=== PATIENT | male | born 1955 | race Caucasian/White ===

== ENCOUNTER 2024-05-03 11:33 | Outpatient (CLI) | payer MEDICARE, SELFPAY ==
--- NOTE | 2024-05-03 11:30 | ECG_ITS ---
Test Date: 2024-05-03 11:58:54 Measurements Intervals [place] Rate: 65 P: 84 IA: 127 QRS: -61 QRSD: 116 T: 20 QT: 420 QTc: 439 Interpretive Statements SINUS RHYTHM LOW QRS VOLTAGE IN PRECORDIAL LEADS [QRS DEFLECTION < 1.0 mV IN CHEST LEADS] INCOMPLETE RIGHT BUNDLE BRANCH BLOCK LEFT ANTERIOR FASCICULAR BLOCK POSSIBLE ANTERIOR MYOCARDIAL INFARCTION BASELINE ARTIFACT- I, II, III, AVR, AVL, AVF, V1-V2 ABNORMAL ECG No previous ECG available for comparison Electronically Signed On 05-03-2024 12:38:08 CDT by Matt Tracy D.O.
[2024-05-03 12:13] LABS: Basophils Percent Auto 0.6 % (0.2-1.2); Eosinophils Absolute Auto 0.1 K/mm3 (0-0.3); Eosinophils Percent Auto 2.1 % (0-4.4); Hematocrit 42.9 % (42.0-52.0); Immature Granulocyte Absolute 0.01 K/mm3 (0.00-0.031); Immature Granulocyte Percent A 0.2 % (0-0.5); Immature Platelet Fraction Pct 7.8 % (0.9-11.2); Lymphocytes Absolute Auto 1.44 K/mm3 (0.9-3.2); Lymphocytes Percent Auto 26.9 % (18.3-44.2); Mean Corpuscular HGB Conc 32.6 g/dl (32-36); Mean Corpuscular Hemoglobin 33.3 pg (26-34); Mean Corpuscular Volume 101.9 fl (80-100); Mean Platelet Volume 11.2 fl (7.4-10.4); Monocytes Absolute Auto 0.6 K/mm3 (0.1-0.6); Neutrophils Absolute Auto 3.2 K/mm3 (1.3-6.7); Neutrophils Percent Auto 59.2 % (45.5-73.1); Platelet Count Result 106 k/mm3 (150-375); Red Blood Count 4.21 M/mm3 (4.6-6.20); Red Cell Distribution Width 12.6 % (11.5-14.5); White Blood Count 5.4 K/mm3 (4.5-10.0)
[2024-05-03 12:22] LABS: INR 1.2; Prothrombin Time 15.5 Seconds (11.1-14.7)
[2024-05-03 12:23] LABS: Partial Thromboplastin Time 28.4 Seconds (22.3-36.8)
[2024-05-03 12:34] LABS: Anion Gap 6 mmol/L (4-12); Blood Urea Nitrogen 17 mg/dL (9-20); Carbon Dioxide 31 mmol/L (22-30); Chloride 99 mmol/L (98-107); Estimated Glomerular Filt Rate > 60; Glucose 96 mg/dL (65-110); Potassium 3.5 mmol/L (3.4-5.0); Sodium 136 mmol/L (137-145)
== END 2024-05-03 11:34 | disposition home or self-care (01) ==
LOC: ANHSURGERY 11:38
PROVIDERS: PCP Family Medicine; Visit Provider Urology
DX: Z01.818 Encounter for other preprocedural examination (principal); N40.0 Benign prostatic hyperplasia without lower urinary tract symptoms; I51.9 Heart disease, unspecified
CPT/HCPCS: 36415; 80048; 85025; 85055; 85610; 85730; 87086; 93005

== ENCOUNTER 2024-05-08 02:03 | Day surgery (SDC) | payer MEDICARE, SELFPAY ==
[2024-04-30 14:02] VITALS: BMI 23.4
--- NOTE | 2024-04-30 14:23 | PC.NURSE ---
Report to the Outpatient Waiting Room, entrance under the green pavilion located off [facility], at time __06:00am___ on date 05/08/24 . Planned Procedure Time: __07:30am .? Time changes happen often and if your time is changed the preop area will call you the afternoon before. - You and your visitor will be asked to self-screen and do not enter if you have any COVID symptoms. Please call surgeon if you need to reschedule. - A mask is optional within the hospital at this time. Patients may have clear liquids (water, carbonated beverages, clear teas, apple juice) until 3 hours prior to surgery with a maximum of 20 ounces. - No food from midnight until time of surgery and no smoking (4:30am) - Take only the following medications with a SIP of water on the morning of surgery: None DO NOT STOP ANY OF YOUR OTHER PRESCRIPTION MEDICATIONS PRIOR TO SURGERY EXCEPT THE FOLLOWING Medications to discontinue per physician Eliquis to be held prior to surgery per Dr. Etienne/Dr Gomez ( pt to call today to verify instruct) ____ Date to take last dose___per instructions. Hold all vitamins, supplements for 3 days prior per Anesthesia, Date to take last dose is 05/04/24 Please no make-up, nail mosotho, hairspray, perfume, deodorant, or body powder the day of surgery.? No jewelry (including any body piercings) or valuables the day of surgery, leave them at home.? Please take a shower or bath the night before, or the morning of, surgery with an antibacterial soap.? Wear comfortable, loose fitting clothing.? - Jewelry must be removed prior to entering the operating room.? Rings and piercings that are not removed may be cut off. - The hospital will not accept responsibility for valuables.? - Please leave all valuables, including medications, at home the day of surgery. If you are going home after surgery, a licensed interstate bus driver must drive you home.? - NO public transportation without another adult if you receive anesthesia. - We recommend that an adult stay with you for 24 hours following discharge. - We also recommend that you do not drive, make important decision, drink alcoholic beverages, or take any drugs that were not prescribed by your health care provider for at least 24 hours after your discharge time. Follow any additional instructions given to you from your surgeon. Telephone instructions given to _patient and asked if any additional questions and then verbalized understanding. Patient advised to call surgeon office or pre surgery nurse liaison [phone] if any additional questions.
[2024-05-08] VITALS (13 sets, daily range): BP systolic 110–150; BP diastolic 63–89; PULSE 60–88; RESP 14–18; TEMP 36.4–37.2; O2SAT 97–100; BMI 23.5
--- NOTE | ~2024-05-08 | XR_ITS ---
EXAMINATION: XR stent kub - surgery DATE: 05/08/2024 8:00 CDT INDICATION: CYSTO . TECHNIQUE: 2 fluoroscopic images of the abdomen and pelvis were obtained during right retrograde pyel ography with stent placement, performed by Darci Gomez. I was not present during the proced ure. Fluoroscopy exposure time was 13.3 seconds. Air Kerma 4.20 mGy. DAP [id number] mGym2. COMPARISON: None FINDINGS/IMPRESSION: Fluoroscopic documentation of right retrograde pyelography with stent placement. Please refer to the operative note for complete procedural details . Reviewed, dictated and finalized at location K.
[2024-05-08] MEDS: LACTATED RINGERS 1,000 ML 30 ML IV CONT ×2 (06:30→08:43)
[2024-05-08 06:46] LABS: Prothrombin Time 13.6 Seconds (11.1-14.7)
--- NOTE | 2024-05-08 06:59 | WPDANESEPPF ---
Anes - Initial Pre Proc Eval Procedure: Operation Date: 05/08/24 07:30 Proposed Procedures p Trans Urethral Resection Bladder Tumor, - Darci Gomez MD s Trans Urethral Resection Prostate - Darci Gomez MD Date/Time: 05/08/24 06:59 Surgeon: Darci Gomez MD Pre Op Diagnosis: BPH, bladder lesion Patient Data Age: 68 Gender: M Height: 1.75 m Weight: 72 kg Allergies Allergy/AdvReac Type Severity Reaction Status Date / Time No Known Allergies Allergy Verified 04/30/24 13:52 Home Medications Medication Instructions Recorded Confirmed Type apixaban 5 mg tablet (Eliquis) 5 mg PO BID 11/21/19 04/30/24 History tamsulosin 0.4 mg capsule 0.4 mg PO DAILY 11/21/19 04/30/24 History cyanocobalamin (vitamin B-12) 1,000 mcg PO DAILY 12/21/21 04/30/24 History 2,500 mcg tablet finasteride 5 mg tablet 5 mg PO DAILY 07/15/23 05/08/24 History acetaminophen 500 mg capsule 1,000 mg PO DAILY 04/30/24 04/30/24 History ascorbate calcium (vitamin C) 500 500 mg PO DAILY 04/30/24 04/30/24 History mg capsule cholecalciferol (vitamin D3) 25 1 unit PO DAILY 04/30/24 04/30/24 History mcg (1,000 unit) capsule (Vitamin D3) vitamin E 670 mg (1,000 unit) 1 cap PO DAILY 04/30/24 04/30/24 History capsule Laboratory Tests 05/08/24 06:22 PT 13.6 Seconds (11.1-14.7) INR 1.0 Patient hx anesthesia problems: none Family hx anesthesia problems: none Results Review: All pre-operative results and documents have been reviewed as part of the pre-operative evaluation. 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 PATIENT STATES HE SMOKED 1 PACK A DAY FOR 30 YEARS. STILL CURRENTLY SMOKES CIGARS OCCASIONALLY. Smoking packs per day: 1 Smoking cigarettes per day: 20.0 Years smoked: 30 Smoking pack-years: 30.00 Smoking status: Former smoker Tobacco type: cigars Smoking end date: 08/08/05 Additional smoking assessment comments: Quit smoking cigarrets 2005, still smokes occasional cigar while golfing Alcohol intake: current Drinks per week: 10 Substance use: never Substance use type: marijuana and other Other substance usage details: uses gummy prior to eating , smoke marijuana twice a week Lack of Transportation: No Lack of Food: Never True Current Housing: I Have Housing Concerned About Future Housing: No Difficulty Paying Gas/Electric Bills: No Difficulty Paying for Meds: No Education: High School Diploma/GED Difficulty w/ Childcare or Family Care: No Living arrangements: with family Additional living arrangements comments: Occupation/Education: retired Gender identity (if verbalized by the patient): Male Spiritual care concerns: No Agree to blood products: Yes Anes - Eval Final PreProcedure Day of Procedure 05/08/24 06:59 Patient weight: normal Heart: regular rate and rhythm Lungs: clear to auscultation Airway: Mallampati scale and special considerations (Upper perm partial. ) Neurological: alert and oriented Last oral intake: >/= 8 hours ASA classification: IV Emergent: no Anesthetic plan: proceed Anesthesia type and monitoring: general ETT and standard monitoring Results Review: All pre-operative results and documents have been reviewed as part of the pre-operative evaluation. Hx of Pafib, s/p ablation, hx AVR
--- NOTE | 2024-05-08 07:06 | WPDHPUPDATE1 ---
History and Physical Update Update Date/Time: 05/08/24 07:06 History and Physical has been reviewed, including an updated exam of the patient. There are NO changes in the patient's condition. Risks, benefits, and alternatives have been discussed and questions answered. Patient agrees to proceed with procedure.
--- NOTE | 2024-05-08 07:15 | PM.IMHP ---
H&P: HPI History of Present Illness Date/Time: 05/08/24 07:15 Chief Complaint: bladder tumor with involvement of bladder neck/prostate Narrative: 68 year old found to have a bladder lesion Review of Systems Review of Systems: All systems reviewed & are unremarkable except as noted in HPI and below PMFSH Past Medical History Medical History Arthritis Asthma CHILD Enlarged prostate Esophageal cancer Heart disease Surgical History Surgical History History of aortic valve replacement 2018 History of esophagectomy 2007 History of mitral valve prosthesis 2018 Family History Family History Father Lung cancer Social History Social History Social History: 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 PATIENT STATES HE SMOKED 1 PACK A DAY FOR 30 YEARS. STILL CURRENTLY SMOKES CIGARS OCCASIONALLY. Smoking packs per day: 1 Smoking cigarettes per day: 20.0 Years smoked: 30 Smoking pack-years: 30.00 Smoking status: Former smoker Tobacco type: cigars Smoking end date: 08/08/05 Additional smoking assessment comments: Quit smoking cigarrets 2005, still smokes occasional cigar while golfing Alcohol intake: current Drinks per week: 10 Substance use: never Substance use type: marijuana and other Other substance usage details: uses gummy prior to eating , smoke marijuana twice a week Lack of Transportation: No Lack of Food: Never True Current Housing: I Have Housing Concerned About Future Housing: No Difficulty Paying Gas/Electric Bills: No Difficulty Paying for Meds: No Education: High School Diploma/GED Difficulty w/ Childcare or Family Care: No Living arrangements: with family Additional living arrangements comments: Occupation/Education: retired Gender identity (if verbalized by the patient): Male Spiritual care concerns: No Agree to blood products: Yes Meds Home Medications and Allergies Home Medications Medication Instructions Recorded Confirmed Type apixaban 5 mg tablet (Eliquis) 5 mg PO BID 11/21/19 04/30/24 History tamsulosin 0.4 mg capsule 0.4 mg PO DAILY 11/21/19 04/30/24 History cyanocobalamin (vitamin B-12) 1,000 mcg PO DAILY 12/21/21 04/30/24 History 2,500 mcg tablet finasteride 5 mg tablet 5 mg PO DAILY 07/15/23 05/08/24 History acetaminophen 500 mg capsule 1,000 mg PO DAILY 04/30/24 04/30/24 History ascorbate calcium (vitamin C) 500 500 mg PO DAILY 04/30/24 04/30/24 History mg capsule cholecalciferol (vitamin D3) 25 1 unit PO DAILY 04/30/24 04/30/24 History mcg (1,000 unit) capsule (Vitamin D3) vitamin E 670 mg (1,000 unit) 1 cap PO DAILY 04/30/24 04/30/24 History capsule Allergies Allergy/AdvReac Type Severity Reaction Status Date / Time No Known Allergies Allergy Verified 04/30/24 13:52 Vital Signs Vital Signs - 24 hr 05/08/24 06:15 Temperature 36.6 C Pulse Rate 73 Respiratory Rate 18 Blood Pressure 119/73 Pulse Oximetry 98 Oxygen Delivery Room Air Exam Const: General: cooperative, comfortable and no acute distress Resp: Effort & Inspection: normal respiratory effort Cardio: Rate: regular rate Rhythm: regular rhythm Assessment and Plan Assessment and plan (1) Lesion of bladder: Code(s): N32.9 - Bladder disorder, unspecified Status: Acute Assessment and Plan: proceed with turbt, possible turp
[2024-05-08] MEDS: ceFAZolin 2 GM/D5W 50 ML 2 GM/50 ML BAG IVPB (07:28)
[2024-05-08] MEDS: LIDOCAINE HCL 2% GEL UROJET 10 ML PKG MUCOUS MEM (07:40)
--- NOTE | 2024-05-08 08:35 | W.PM.PROC2 ---
Procedure Note - Detailed Date of Procedure 05/08/24 Pre-op Diagnosis BPH, bladder lesion Post-op Diagnosis Same Procedure Performed Cystoscopy, transurethral resection of bladder tumor large, right retrograde pyelogram, right ureteral stent placement 4.8 Egyptian contour, transurethral resection of prostate, complex Polo catheter placement Surgeon Darci Gomez MD Anesthesia General Description of Procedure Patient was taken to the operative suite correctly identified. Once anesthesia was obtained was placed in dorsal lithotomy position and prepped and draped usual sterile fashion. Twenty-two Egyptian scope was inserted the bladder in direct vision. He has a tumor which is right at the bladder neck area. The area encompasses least 5 cm of surface area. The larger tumors on the floor and is overlying the right ureteral orifice. He also has tumor at the bladder neck extending into the prostatic fossa slightly. This is fairly circumferential. He also had another 1 cm tumor posterior floor. This was resected 1st and fulgurated. I then resected the tumor overlying the right ureteral orifice. In order to resected adequately and needed to resect the orifice. Specimens were sent for analysis. I then did a retrograde pyelogram to confirm placement of the stent. No discrete filling defects were noted. Sensor wire had been placed in the kidney. 4.8 Egyptian contour stent was then placed with the proximal end coiled in the renal pelvis and the distal in the bladder. I then resected the bladder neck area and in order to do this he required a transurethral resection of his prostate. This was carried out from the bladder neck to the verumontanum bilaterally. Hemostasis was achieved using a rollerball. 2% viscous lidocaine was inserted into the urethra to 24 Egyptian 3 was placed with 20 cc in the balloon. Patient tolerated procedure well without any complications was taken recovery stable condition. He will be admitted for CBI. Ureteral stent will stay in for minimum of approximately 6 weeks. This completes dictation. Please send a copy of op note to my office. Estimated Blood Loss 25 Drains Yes Packing No Pathology Yes Complications No immediate complications Condition Stable Disposition PACU
[2024-05-08] MEDS: fentaNYL CITRATE INJ (*CRX) 100 MCG/2 ML VIAL 25 MCG IV PUSH ×4 (09:07→09:21)
[2024-05-08] MEDS: ONDANSETRON INJ 4 MG/2 ML VIAL IV PUSH (11:01)
[2024-05-08] MEDS: HYDROcodone/acetaminophen (*CRX) 5-325 MG TABLET 1 TAB PO ×2 (11:01→21:09)
[2024-05-08] MEDS: DEXTROSE 5%/LACTATED RINGERS 1,000 ML 125 ML IV CONT (11:01)
[2024-05-08] MEDS: DOCUSATE SODIUM 100 MG CAPSULE PO (11:01)
[2024-05-08] MEDS: MORPHINE SULFATE (*CRX) 2 MG/ML INJ IV PUSH (13:20)
[2024-05-08] MEDS: ceFAZolin 1 GM/NS 50 ML 1 GM/50 ML BAG IVPB ×2 (15:56→22:02)
[2024-05-09 03:38] VITALS: BP 126/78; PULSE 78; RESP 18; TEMP 37.1; O2SAT 98
[2024-05-09] MEDS: HYDROcodone/acetaminophen (*CRX) 5-325 MG TABLET 1 TAB PO ×3 (04:33→14:59)
[2024-05-09 07:32] LABS: Hematocrit 37.1 % (42.0-52.0); Hemoglobin 12.3 g/dL (14.0-18.0)
[2024-05-09 07:38] VITALS: BP 126/73; PULSE 59; RESP 14; TEMP 36.4; O2SAT 97
[2024-05-09 07:42] LABS: Anion Gap 2 mmol/L (4-12); Blood Urea Nitrogen 14 mg/dL (9-20); Calcium 8.3 mg/dL (8.4-10.2); Carbon Dioxide 31 mmol/L (22-30); Chloride 102 mmol/L (98-107); Estimated CRCL calculation 61 ml/min; Estimated Glomerular Filt Rate > 60; Glucose 102 mg/dL (65-110); Sodium 135 mmol/L (137-145)
[2024-05-09] MEDS: CEPHALEXIN 500 MG CAPSULE PO ×2 (08:48→12:14)
[2024-05-09] MEDS: DOCUSATE SODIUM 100 MG CAPSULE PO (08:48)
--- NOTE | 2024-05-09 09:30 | WPDUROPN2 ---
Progress Note: A&P Assessment and Plan (1) Lesion of bladder: Code(s): N32.9 - Bladder disorder, unspecified Status: Acute Assessment and Plan: Underwent cystoscopy, transurethral resection of large bladder tumor, right retrograde pyelogram, right ureteral stent placement, and TURP on 05/08/[address] Gomez. He tolerated this procedure well. Polo today is draining clear urine on slow drip CBI. Will stop CBI and await assessment by Dr. Gomez. Hopefully home later today if urine remains clear and patient continues to improve. Subjective Subjective Date/Time Seen: 05/09/24 09:30 Interval history: He is feeling well today following his procedure. Denies any pain. No issues with Polo catheter which is draining clear urine on slow drip CBI. Denies nausea, vomiting, fever, or chills. Review of Systems Review of Systems: All systems reviewed & are unremarkable except as noted in HPI and below Exam Narrative: General: Awake, alert, comfortable, no acute distress HEENT: Normocephalic, atraumatic, sclerae anicteric Respiratory: Normal respiratory effort, no accessory muscle use Abdomen: Nondistended, soft, nontender : Polo catheter draining clear urine on very slow drip CBI Skin: Normal coloration, warm and dry Neurologic: No focal neuro deficits noted Psychiatric: Appropriate mood and affect, judgment and insight intact Objective Data Vital Signs Vital Signs: Vital Signs - 24 hr 05/08/24 14:58 05/08/24 19:38 05/08/24 23:17 Temperature 97.9 F 98.4 F 98.9 F Pulse Rate 74 88 85 Respiratory Rate 18 18 16 Blood Pressure 140/65 124/75 110/64 Pulse Oximetry 100 98 97 Oxygen Delivery 05/09/24 03:38 05/09/24 07:38 05/09/24 08:48 Temperature 98.7 F 97.6 F Pulse Rate 78 59 L Respiratory Rate 18 14 Blood Pressure 126/78 126/73 Pulse Oximetry 98 97 Oxygen Delivery Room Air 05/09/24 11:33 Temperature 99.2 F Pulse Rate 77 Respiratory Rate 16 Blood Pressure 129/68 Pulse Oximetry 100 Oxygen Delivery Intake/Output Intake/Output: Intake & Output 05/06/24 05/07/24 05/08/24 05/09/24 23:59 23:59 23:59 23:59 Intake Total 2240 1116 Output Total 1950 1100 Balance 290 16 Meds/Results Medications: Active Medications Generic Name Dose Route Start Last Admin Trade Name Freq PRN Reason Stop Dose Admin Hydrocodone Bitart/Acetaminophen 1 tab 05/08/24 09:53 05/09/24 10:56 Hydrocodone/Acetaminophen (*Crx) 5-325 Mg Tablet PO 1 tab Q4H PRN Administration Pain Rated 1-6 Cephalexin HCl 500 mg 05/09/24 09:00 05/09/24 12:14 Cephalexin 500 Mg Capsule PO 500 mg QID KANWAL Administration Docusate Sodium 100 mg 05/08/24 09:53 05/09/24 08:48 Docusate Sodium 100 Mg Capsule PO 100 mg BID KANWAL Administration Hyoscyamine 0.125 mg 05/08/24 09:53 Hyoscyamine Sulfate 0.125 Mg Tablet SUBLINGUAL Q6H PRN Bladder Spasm Dextrose/Lactated Ringer's 1,000 mls @ 125 mls/hr 05/08/24 09:53 05/08/24 17:14 Dextrose 5%/Lactated Ringers IV CONT Not Given .Q8H KANWAL Morphine Sulfate 2 mg 05/08/24 09:53 05/08/24 13:20 Morphine Sulfate (*Crx) 2 Mg/Ml Inj IV PUSH 2 mg Q2H PRN Administration Pain Rated 7-10 Naloxone HCl 0.1 mg 05/08/24 09:53 Naloxone Hcl 0.4 Mg/Ml Vial IV PUSH Q2M PRN Opiate Reversal Ondansetron HCl 4 mg 05/08/24 09:53 05/08/24 11:01 Ondansetron Inj 4 Mg/2 Ml Vial IV PUSH 4 mg Q12H PRN Administration Nausea And Vomiting Labs Labs: Laboratory Results - last 24 hr 05/09/24 06:54 Hgb 12.3 L Hct 37.1 L Sodium 135 L Potassium 4.0 Chloride 102 Carbon Dioxide 31 H Anion Gap 2 L BUN 14 Creatinine 1.00 Estim Creat Clear Calc 61 Estimated GFR > 60 Glucose 102 Calcium 8.3 L
[2024-05-09 11:33] VITALS: BP 129/68; PULSE 77; RESP 16; TEMP 37.3; O2SAT 100
--- NOTE | 2024-05-09 15:51 | PM.DS ---
DS: Admitting Diagnosis Discharge Date 05/09/24 Admitting Diagnosis Bladder lesion DS: Discharge Diagnosis Discharge Diagnosis (1) Lesion of bladder: Code(s): N32.9 - Bladder disorder, unspecified Status: Acute DS: Summary Hospital Course Hospital Course: Arthur is a 68 year old male who presented to [facility] on 05/08/24 for scheduled surgery. He underwent cystoscopy, transurethral resection of large bladder tumor, right retrograde pyelogram, right ureteral stent placement, and TURP on 05/08/[address] Gomez. He tolerated this procedure well. He was started on CBI after this procedure and monitored overnight. On POD#1 his urine remained clear and CBI was discontinued. Pain was well controlled. He was tolerating his diet without difficulty and ambulating. He will be discharged home with Mkcay catheter and follow up for catheter removal early next week. He will then follow up with Dr. Gomez in 6 weeks for follow up and stent removal. He was discharged with a course of Bactrim, colace, and tramadol. Discussed worrisome signs and symptoms for which to seek care. He felt comfortable with plans for discharge home. Status at Discharge Overall status at discharge: patient is progressing back to baseline Time Spent with Patient Time attestation: Total time spent providing and/or coordinating discharge services: 35 minutes Time spent: Greater than 30 minutes Exam Narrative: General: Awake, alert, comfortable, no acute distress HEENT: Normocephalic, atraumatic, sclerae anicteric Respiratory: Normal respiratory effort, no accessory muscle use Abdomen: Nondistended, soft, nontender : Mckay catheter draining clear urine on very slow drip CBI Skin: Normal coloration, warm and dry Neurologic: No focal neuro deficits noted Psychiatric: Appropriate mood and affect, judgment and insight intact DS: Data Data Completed and Pending Completed studies during hospitalization: Pending at discharge 05/08/24 08:11 Surgical [PTH] Routine Surgical [PTH] Routine Labs on day of discharge: Labs from last 24 hours 05/09/24 06:54 Hgb 12.3 L Hct 37.1 L Sodium 135 L Potassium 4.0 Chloride 102 Carbon Dioxide 31 H Anion Gap 2 L BUN 14 Creatinine 1.00 Estim Creat Clear Calc 61 Estimated GFR > 60 Glucose 102 Calcium 8.3 L Discharge Plan Discharge Patient Disposition: Home, Self-Care Discharge Instructions: Continue mckay catheter until your follow up appointment which is scheduled for Tuesday05/14/24 at 10:00 am If you have issues with your mckay catheter draining call the office or go to ER You will begin taking Bactrim once daily for the next week Hold off on taking Eliquis for the next 2-3 days. Can resume on 05/11/24 if no bleeding. Patient Instructions: Antibiotic Form Stand Alone Forms: General Discharge Information, General Discharge Instructions Follow-up/Referrals: Darci Gomez MD [Physician] - 05/14/24 10:00 am Discharge Medications: New docusate sodium 100 mg Capsule 100 mg PO BID Qty: 20 0RF tramadol 25 mg tablet 25 mg PO Q6H PRN (Reason: pain) Qty: 10 0RF sulfamethoxazole-trimethoprim [Bactrim DS] 800-160 mg tablet 1 tablet PO DAILY Qty: 7 0RF Continued cyanocobalamin (vitamin B-12) 2,500 mcg tablet 1,000 mcg PO DAILY tamsulosin 0.4 mg capsule 0.4 mg PO DAILY finasteride 5 mg tablet 5 mg PO DAILY ascorbate calcium (vitamin C) 500 mg Capsule 500 mg PO DAILY vitamin E 670 mg (1,000 unit) Capsule 1 cap PO DAILY cholecalciferol (vitamin D3) [Vitamin D3] 25 mcg (1,000 unit) Capsule 1 unit PO DAILY acetaminophen 500 mg Capsule 1,000 mg PO DAILY Held Eliquis 5 mg tablet 5 mg PO BID Hold Instructions: Resume on 05/11/24.
== END 2024-05-09 16:30 | disposition home or self-care (01) ==
LOC: ANHSURGERY 05:56 → ANH3MEDSUR 10:01
PROVIDERS: PCP Family Medicine; Visit Provider Urology
PROC: 0TBB8ZZ Excision of Bladder, Via Natural or Artificial Opening Endoscopic (ICD-10-PCS; CPT 52240; principal; 2024-05-08 07:30)
PROC: 0VT08ZZ Resection of Prostate, Via Natural or Artificial Opening Endoscopic (ICD-10-PCS; CPT 52601; 2024-05-08 07:30)
DX: C67.5 Malignant neoplasm of bladder neck (principal); N40.0 Benign prostatic hyperplasia without lower urinary tract symptoms; J45.909 Unspecified asthma, uncomplicated; F12.90 Cannabis use, unspecified, uncomplicated; Z79.01 Long term (current) use of anticoagulants; Z98.890 Other specified postprocedural states; Z95.2 Presence of prosthetic heart valve; Z87.891 Personal history of nicotine dependence; Z85.01 Personal history of malignant neoplasm of esophagus; Z86.79 Personal history of other diseases of the circulatory system; Z80.1 Family history of malignant neoplasm of trachea, bronchus and lung
CPT/HCPCS: 52240; 52601; 36415; 74420; 80048; 85014; 85018; 85025; 85055; 85610; 85730; 87086; 88305; 93005; A9270; C1758; C1769; C2617; J0690; J2270; J2405; J3010; J7120; J7121; Q9966

== ENCOUNTER 2024-05-19 17:49 | Inpatient (IN) | payer MEDICARE, SELFPAY ==
[2024-05-19 17:51] VITALS: BP 141/71; PULSE 84; RESP 18; TEMP 36.3; O2SAT 100
[2024-05-19 18:39] LABS: Basophils Absolute Auto 0.1 K/mm3 (0.0-0.1); Basophils Percent Auto 0.5 % (0.2-1.2); Eosinophils Absolute Auto 0.2 K/mm3 (0-0.3); Eosinophils Percent Auto 2.5 % (0-4.4); Hematocrit 36.7 % (42.0-52.0); Hemoglobin 12.3 g/dL (14.0-18.0); Immature Granulocyte Absolute 0.03 K/mm3 (0.00-0.031); Immature Granulocyte Percent A 0.3 % (0-0.5); Lymphocytes Absolute Auto 1.38 K/mm3 (0.9-3.2); Lymphocytes Percent Auto 14.8 % (18.3-44.2); Mean Corpuscular HGB Conc 33.5 g/dl (32-36); Mean Corpuscular Hemoglobin 33.4 pg (26-34); Mean Corpuscular Volume 99.7 fl (80-100); Mean Platelet Volume 10.1 fl (7.4-10.4); Monocytes Absolute Auto 0.7 K/mm3 (0.1-0.6); Monocytes Percent Auto 7.6 % (2.6-8.5); Neutrophils Absolute Auto 6.9 K/mm3 (1.3-6.7); Neutrophils Percent Auto 74.3 % (45.5-73.1); Platelet Count Result 186 k/mm3 (150-375); Red Blood Count 3.68 M/mm3 (4.6-6.20); White Blood Count 9.3 K/mm3 (4.5-10.0)
[2024-05-19 18:49] LABS: Anion Gap 6 mmol/L (4-12); Blood Urea Nitrogen 23 mg/dL (9-20); Calcium 8.8 mg/dL (8.4-10.2); Carbon Dioxide 27 mmol/L (22-30); Chloride 99 mmol/L (98-107); Estimated CRCL calculation 55 ml/min; Estimated Glomerular Filt Rate > 60; Glucose 94 mg/dL (65-110); Potassium 3.6 mmol/L (3.4-5.0); Sodium 132 mmol/L (137-145)
--- NOTE | 2024-05-19 19:24 | ED.MALEGU ---
HPI - Male Genitourinary General Chief complaint: Urogenital-Male Stated complaint: urinary retention Time Seen by Provider: 05/19/24 18:16 History of Present Illness HPI Narrative: Patient had recent bladder tumor resection /TURP with urologist 10 days ago, had some slight hematuria however this morning at 5 woke up and noticed that there were blood clots and that he was having trouble urinating, he came into the ER but was able to go to the bathroom and passed a large clot and afterwards he had no issues with the strain, so went home. He came back because he started having issues urinating again. Related Data Home Medications Medication Instructions Recorded Confirmed apixaban 5 mg tablet (Eliquis) 5 mg PO BID 11/21/19 04/30/24 tamsulosin 0.4 mg capsule 0.4 mg PO DAILY 11/21/19 04/30/24 cyanocobalamin (vitamin B-12) 1,000 mcg PO DAILY 12/21/21 04/30/24 2,500 mcg tablet finasteride 5 mg tablet 5 mg PO DAILY 07/15/23 05/08/24 acetaminophen 500 mg capsule 1,000 mg PO DAILY 04/30/24 04/30/24 ascorbate calcium (vitamin C) 500 500 mg PO DAILY 04/30/24 04/30/24 mg capsule cholecalciferol (vitamin D3) 25 1 unit PO DAILY 04/30/24 04/30/24 mcg (1,000 unit) capsule (Vitamin D3) vitamin E 670 mg (1,000 unit) 1 cap PO DAILY 04/30/24 04/30/24 capsule Allergies Allergy/AdvReac Type Severity Reaction Status Date / Time No Known Allergies Allergy Verified 05/19/24 17:54 Review of Systems Review of Systems: All systems reviewed & are unremarkable except as noted in HPI and below PMFSH Past Medical History Medical History Arthritis Asthma CHILD Enlarged prostate Esophageal cancer Heart disease Surgical History Surgical History History of aortic valve replacement 2018 History of esophagectomy 2008 History of mitral valve prosthesis 2018 Family History Family History Father Lung cancer Social History Social History Social History: 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 PATIENT STATES HE SMOKED 1 PACK A DAY FOR 30 YEARS. STILL CURRENTLY SMOKES CIGARS OCCASIONALLY. Smoking packs per day: 1 Smoking cigarettes per day: 20.0 Years smoked: 30 Smoking pack-years: 30.00 Smoking status: Former smoker Tobacco type: cigars Smoking end date: 08/08/05 Additional smoking assessment comments: Quit smoking cigarrets 2005, still smokes occasional cigar while [employer] Alcohol intake: current Drinks per week: 10 Substance use: never Substance use type: marijuana and other Other substance usage details: uses gummy prior to eating , smoke marijuana twice a week Lack of Transportation: No Lack of Food: Never True Current Housing: I Have Housing Concerned About Future Housing: No Difficulty Paying Gas/Electric Bills: No Difficulty Paying for Meds: No Education: High School Diploma/GED Difficulty w/ Childcare or Family Care: No Living arrangements: with family Additional living arrangements comments: Occupation/Education: retired Gender identity (if verbalized by the patient): Male Spiritual care concerns: No Agree to blood products: Yes Exam Narrative: EXAMINATION OF ORGAN SYSTEMS/BODY AREAS: Constitutional: Vital signs per nursing GENERAL:[No acute distress, non-toxic appearing.] HEAD: Normal with no signs of head trauma. EYES: EOMI, conjunctiva normal ENT: Hearing grossly intact LUNGS: Nonlabored breathing. HEART: [Regular rate and rhythm] ABD: [Soft], [nontender to palpation] EXT: Normal range of motion SKIN: [No rashes or lesions.] NEURO: [Alert and oriented x 3. No gross focal sensory or strength deficits.] PSYCH: Normal affect Course Vital Signs Vital signs: Vital Signs Temperature 97.
[2024-05-19 19:27] LABS: Add Urine Microscopic? YES; Appearance Urine Cloudy (Clear); Bacteria Urine None Seen /hpf; Bilirubin Urine 2+ (Negative); Blood Urine 2+ (Negative); Color Urine Red (Yellow); Glucose Urine UA Negative (Negative); Ketones Urine Negative (Negative); Leukocyte Esterase Ur 3+ LEU/UL (Negative); Nitrate Urine Positive (Negative); Protein Urine 2+ mg/dL (Negative); RBC Urine >100 /hpf (0-2); Specific Grav Ur 1.014 (1.001-1.035); Squamous Epithelial Cell Urine None Seen /hpf (Few); Urobilinogen Urine 0.2 mg/dL (<2.0)
[2024-05-19 19:28] LABS: Need Manual Microscopic Reviewed
[2024-05-19 19:35] LABS: pH Urine 8.5 (5.0-9.0)
[2024-05-19] MEDS: LIDOCAINE HCL 2% GEL UROJET 10 ML PKG (19:37)
[2024-05-19] MEDS: WATER FOR IRRIGATION, STERILE 500 ML BOTTLE (19:37)
[2024-05-19 20:01] VITALS: BP 139/76; PULSE 77; RESP 18; O2SAT 98
[2024-05-19] MEDS: MORPHINE SULFATE (*CRX) 4 MG/ML INJ IV PUSH (20:30)
[2024-05-19] MEDS: cefTRIAXone 2 GM/NS 100 ML 2 GM/100 ML BAG IVPB (20:30)
--- NOTE | 2024-05-19 20:37 | PC.NURSE ---
This Rn just emptied out pt catheter bag around 3000 ml total and pt has received around 2000 ml of CBI at this point in time.
[2024-05-19 21:29] VITALS: BMI 22.8
[2024-05-19 21:40] VITALS: BP 143/82; PULSE 73; RESP 18; TEMP 36.5; O2SAT 98
--- NOTE | 2024-05-19 21:41 | PC.NURSE ---
RN emptied catheter bag again at this time. Bag emptied out around 1750 ml and pt received the last 1000 ml of bag 1. Bag 2 started at this time.
--- NOTE | 2024-05-19 22:07 | ADMGEN ---
This patient, Arthur Henderson, was admitted to [facility] Surg Room 306-02. Patient/family oriented to hospital policies and general routines including ID bracelet, bed and alarms, visiting hours, pain management, procedures, bathroom and other care routines, personal items, smoking policy, room service/diet, and visiting hours. Information on how to activate the Rapid Response Team has been discussed. Patient/Family are encouraged to report perceived risks to care and to ask questions if they do not understand what they are told or what they should do.
--- NOTE | 2024-05-19 22:32 | PM.IMHP ---
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 The patient reports that he completed his postoperativ Bactrim on the . 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 Then last evening he developed increasing urinary frequency with small amounts of dribbling of more bright red urine. Then this morning he developed acute obstruction with suprapubic pain. He came to the ER for evaluation but just prior to being registered he was able to pass a large clot of blood and decided to go home. Shortly thereafter he started having symptoms of pain again and retention and came back to the ER for evaluation. He reports he has had dysuria ever since his urinary for seizure. He denies any fevers or chills. He has been drinking significant amount of water head help flush out his system. He reports that his urinary stream was doing well until last night when it started to get weaker. He denies any nausea or vomiting. He reports lightheadedness with standing up on occasion but this is unchanged from baseline. He is on chronic anticoagulation with Eliquis ever since his valve replacement in 2018. He reports that his valve replacements are pig valves. He denies history of atrial fibrillation or cardiac rhythm issues. 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 Review of Systems Review of Systems: 12 systems were reviewed with pertinent positives and negatives per HPI. Except as documented in the HPI, all other systems were reviewed and are negative. [facility] Past Medical History Medical History (Updated 05/19/24 @ 22:50 by Esther Vazquez DO) Arthritis Asthma CHILD BPH (benign prostatic hyperplasia) BPPV (benign paroxysmal positional vertigo) Diastolic heart failure Dupuytren's contracture of left hand Esophageal cancer (~2007) GERD (gastroesophageal reflux disease) Heart disease Paroxysmal A-fib Patient denies history but records found of paroxysmal AFib from Cardiology note 2020 Pulmonary hypertension Squamous cell carcinoma Urothelial cancer Surgical History Surgical History (Updated 05/19/24 @ 22:51 by Esther Vazquez DO) History of aortic valve replacement Diaz pericardial bioprosthesis 2018 History of esophagectomy 2008 due to esophageal cancer treated with chemotherapy and radiation therapy History of intraocular lens implant Bilateral due to severe nearsightedness History of left atrial appendage closure (09/30/17) History of mitral valve prosthesis (09/30/17) Medtronic Mosaic Bioprosthetic 2018 History of radiofrequency ablation procedure for cardiac arrhythmia History of tonsillectomy and adenoidectomy Hx of cholecystectomy Status post patent foramen ovale closure Family History Family History Father Lung cancer Social History Social History (Updated 05/19/24 @ 22:54 by Esther Vazquez DO) Social History: Patient lives with his of 38 years. He has 1 son from a prior marriage and 3 children from his current marriage. He used to smoke 1 pack of cigarettes for approximately 35 years. He still occasionally will smoke a cigar if he is out golfing. He quit smoking in 2005. He drinks 2-4 oz of bourbon a night with an occasional glass of wine. He does use marijuana on occasion. He still golfs between 1 to 3 times a week. Code status: Full code Surrogate decision maker: Sascha (son) the patient states his is currently going through mental health issues and would not want her to be the primary decision
[2024-05-20 05:10] VITALS: BP 109/71; PULSE 68; RESP 18; TEMP 36.5; O2SAT 97
[2024-05-20 06:32] LABS: Basophils Percent Auto 0.6 % (0.2-1.2); Eosinophils Absolute Auto 0.4 K/mm3 (0-0.3); Eosinophils Percent Auto 6.3 % (0-4.4); Hemoglobin 11.5 g/dL (14.0-18.0); Immature Granulocyte Absolute 0.03 K/mm3 (0.00-0.031); Immature Granulocyte Percent A 0.4 % (0-0.5); Lymphocytes Absolute Auto 1.04 K/mm3 (0.9-3.2); Lymphocytes Percent Auto 15.5 % (18.3-44.2); Mean Corpuscular HGB Conc 32.9 g/dl (32-36); Mean Corpuscular Hemoglobin 32.9 pg (26-34); Mean Platelet Volume 10.4 fl (7.4-10.4); Monocytes Absolute Auto 0.6 K/mm3 (0.1-0.6); Monocytes Percent Auto 8.6 % (2.6-8.5); Neutrophils Absolute Auto 4.6 K/mm3 (1.3-6.7); Neutrophils Percent Auto 68.6 % (45.5-73.1); Platelet Count Result 173 k/mm3 (150-375); Red Cell Distribution Width 11.9 % (11.5-14.5); White Blood Count 6.7 K/mm3 (4.5-10.0)
[2024-05-20 07:06] LABS: Anion Gap 5 mmol/L (4-12); Blood Urea Nitrogen 20 mg/dL (9-20); Calcium 8.5 mg/dL (8.4-10.2); Carbon Dioxide 28 mmol/L (22-30); Chloride 101 mmol/L (98-107); Estimated CRCL calculation 55 ml/min; Estimated Glomerular Filt Rate > 60; Glucose 111 mg/dL (65-110); Potassium 3.8 mmol/L (3.4-5.0); Sodium 134 mmol/L (137-145)
--- NOTE | 2024-05-20 08:19 | PM.IMPN ---
Progress Note: A&P Assessment and Plan (1) Gross hematuria: Code(s): R31.0 - Gross hematuria Status: Acute (2) Acute urinary obstruction: Code(s): N13.9 - Obstructive and reflux uropathy, unspecified Status: Acute (3) Abnormal urinalysis: Code(s): R82.90 - Unspecified abnormal findings in urine Status: Acute (4) Current use of anticoagulant therapy: Code(s): Z79.01 - penitentiary (current) use of anticoagulants Status: Acute (5) Urothelial cancer: Code(s): C68.9 - Malignant neoplasm of urinary organ, unspecified Status: Acute Plan Patient has gross hematuria resulting in urinary outlet obstruction in the setting of recent urologic procedure, chronic anticoagulant use and abnormal UA with presence of nitrates and 3+ leukocyte esterase. UA was obtained prior to initiation of CBI. Patient's hematuria could be due to anticoagulant use with recent surgery here or there may be some component of underlying urinary tract infection. Urine cultures have been obtained and are pending. The patient received empiric antibiotic therapy of Rocephin in the ER x1. Will continue Rocephin and await urine culture results. Patient had 3 way catheter placed in the ER and is currently undergoing CBI and has continued gross hematuria but catheter is draining. Urine still appears to be consistent with dark red Jerry-Aid. Will hold the patient's home Eliquis. Urology has been consulted. Will await further recommendations. #history of paroxysmal AFib but has had prior left atrial appendage resection. He does have bioprosthetic aortic and mitral valve replacements but to my knowledge this should require long-term anticoagulation. At this time we can safely hold Eliquis and monitor. -trend CBC and electrolyte panel. Will resume home finasteride and Flomax. The patient is extremely concerned about staying in the hospital as he reports his is currently struggling with mental illness. He would like discharged to soon as possible. Patient has been admitted as observation status. Time Spent With Patient Time with patient: Greater than 35 minutes Subjective Date/time seen: 05/20/24 08:19 Interval history: Unable to urinate Narrative retrieved from H/P: 68-year-old male with past medical history of tissue aortic valve and mitral valve replacement 2018, esophageal cancer status post esophagectomy, BPH and bladder cancer status post recent transurethral section of bladder tumor and prostate 05/08/2024 presented to the ER with increasing hematuria and urinary retention. The patient reports that he completed his postoperativ Bactrim on the . 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 Then last evening he developed increasing urinary frequency with small amounts of dribbling of more bright red urine. Then this morning he developed acute obstruction with suprapubic pain. He came to the ER for evaluation but just prior to being registered he was able to pass a large clot of blood and decided to go home. Shortly thereafter he started having symptoms of pain again and retention and came back to the ER for evaluation. He reports he has had dysuria ever since his urinary for seizure. He denies any fevers or chills. He has been drinking significant amount of water head help flush out his system. He reports that his urinary stream was doing well until last night when it started to get weaker. He denies any nausea or vomiting. He reports lightheadedness with standing up on occasion but this is unchanged from baseline. He is on chronic anticoagulation with Eliquis ever since his valve replacement in 2018. He reports that his valve replacements are pig valves. He denies history of atrial fibrillation or cardiac rhythm issues. 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 Review of Systems Review of Systems: All systems reviewed & ar
[2024-05-20] MEDS: CYANOCOBALAMIN 1,000 MCG TABLET 1000 MCG PO (08:26)
[2024-05-20] MEDS: CHOLECALCIFEROL 1,000 UNITS TABLET 1000 UNITS PO (08:26)
[2024-05-20] MEDS: ASCORBIC ACID 500 MG TABLET PO (08:27)
[2024-05-20] MEDS: FINASTERIDE 5 MG TABLET PO (08:27)
[2024-05-20] MEDS: DOCUSATE SODIUM 100 MG CAPSULE PO ×2 (08:27→20:55)
[2024-05-20] MEDS: ACETAMINOPHEN 500 MG TABLET 1000 MG PO (08:27)
[2024-05-20] MEDS: TAMSULOSIN HCL 0.4 MG CAPSULE PO (08:27)
--- NOTE | 2024-05-20 09:48 | WPDURCON ---
Assessment and Plan Assessment and plan (1) Urothelial cancer: Code(s): C68.9 - Malignant neoplasm of urinary organ, unspecified Status: Acute (2) Gross hematuria: Code(s): R31.0 - Gross hematuria Status: Acute Plan 68 yr old male s/p recent tURBT, TURP and R stent placement on anticoagulation presenting with gross hematuria and clot retention - continue to hold anticoagulation - hematuria currently resolved on CBI and only had few small clots with hand irrigation. Will have nursing work on weaning CBI to off if urine remains clear/light pink. - continue abx for presumed UTI - pt is anxious to try to go home later today since his has mental health issues. If urine remains clear off of CBI, we discussed discharge home tonight with catheter in place and with nursing showing him how to irrigate the catheter. Would recommend empiric abx for presumed UTI and holding eliquis x 48 hrs. Urology Consult Note HPI Date Seen: 05/20/24 Requesting Physician: Esther Vazquez DO Primary Care Provider: Darci Gomez MD Consult Narrative Narrative: Arthur Henderson is a 68 year old male presenting to ER yesterday with clot retention. He has a history of TURBT, TURP, and R stent by Dr. Gomez on 05/08/24. His mckay was removed early the following week. He is on eliquis for his heart valves and had the eliquis on hold for 3 days preop and 3 days postop. He notes ongoing hematuria since the resection. Yesterday, he developed clots and was unable to void so he presented to the ER. A 3way mckay was placed and hand irrigated and CBI was initiated. Eliquis is currently on hold. UA looks positive and he is currently on rocephin. Review of Systems Review of Systems: All systems reviewed & are unremarkable except as noted in HPI and below Constitutional: Constitutional: Reports as per HPI Cardiovascular: Cardiovascular: Denies chest pain and Denies diaphoresis Respiratory: Respiratory: Denies chest congestion and Denies cough Genitourinary: Genitourinary: Reports hematuria and Reports urinary frequency PMF Past Medical History Medical History (Updated 05/19/24 @ 22:50 by Esther Vazquez DO) Arthritis Asthma CHILD BPH (benign prostatic hyperplasia) BPPV (benign paroxysmal positional vertigo) Diastolic heart failure Dupuytren's contracture of left hand Esophageal cancer (~2007) GERD (gastroesophageal reflux disease) Heart disease Paroxysmal A-fib Patient denies history but records found of paroxysmal AFib from Cardiology note 2019 Pulmonary hypertension Squamous cell carcinoma Urothelial cancer Surgical History Surgical History (Updated 05/19/24 @ 22:51 by Esther Vazquez DO) History of aortic valve replacement Diaz pericardial bioprosthesis 2018 History of esophagectomy 2007 due to esophageal cancer treated with chemotherapy and radiation therapy History of intraocular lens implant Bilateral due to severe nearsightedness History of left atrial appendage closure (09/30/17) History of mitral valve prosthesis (09/30/17) Medtronic Mosaic Bioprosthetic 2018 History of radiofrequency ablation procedure for cardiac arrhythmia History of tonsillectomy and adenoidectomy Hx of cholecystectomy Status post patent foramen ovale closure Family History Family History Father Lung cancer Social History Social History (Updated 05/19/24 @ 22:54 by Esther Vazquez DO) Social History: Patient lives with his of 38 years. He has 1 son from a prior marriage and 3 children from his current marriage. He used to smoke 1 pack of cigarettes for approximately 35 years. He still occasionally will smoke a cigar if he is out golfing. He quit smoking in 2005. He drinks 2-4 oz of bourbon a night with an occasional glass of wine. He does use marijuana on occasion. He still golfs between 1 to 3 times a week. Code status: Full code
[2024-05-20 10:12] VITALS: O2SAT 94
--- NOTE | 2024-05-20 12:46 | PM.DS ---
DS: Admitting Diagnosis Discharge Date 05/20 Admitting Diagnosis hematuria DS: Discharge Diagnosis Discharge Diagnosis (1) Gross hematuria: Code(s): R31.0 - Gross hematuria Status: Acute (2) Acute urinary obstruction: Code(s): N13.9 - Obstructive and reflux uropathy, unspecified Status: Acute (3) Abnormal urinalysis: Code(s): R82.90 - Unspecified abnormal findings in urine Status: Acute (4) Current use of anticoagulant therapy: Code(s): Z79.01 - [facility] (current) use of anticoagulants Status: Acute (5) Urothelial cancer: Code(s): C68.9 - Malignant neoplasm of urinary organ, unspecified Status: Acute Plan Patient has gross hematuria resulting in urinary outlet obstruction in the setting of recent urologic procedure, chronic anticoagulant use and abnormal UA with presence of nitrates and 3+ leukocyte esterase. UA was obtained prior to initiation of CBI. Patient's hematuria could be due to anticoagulant use with recent surgery here or there may be some component of underlying urinary tract infection. Urine cultures have been obtained and are pending. The patient received empiric antibiotic therapy of Rocephin in the ER x1. Will continue Rocephin and await urine culture results. Patient had 3 way catheter placed in the ER and is currently undergoing CBI and has continued gross hematuria but catheter is draining. Urine still appears to be consistent with dark red Jerry-Aid. Will hold the patient's home Eliquis. Urology has been consulted. Will await further recommendations. #history of paroxysmal AFib but has had prior left atrial appendage resection. He does have bioprosthetic aortic and mitral valve replacements but to my knowledge this should require long-term anticoagulation. At this time we can safely hold Eliquis and monitor. -trend CBC and electrolyte panel. Will resume home finasteride and Flomax. The patient is extremely concerned about staying in the hospital as he reports his is currently struggling with mental illness. He would like discharged to soon as possible. Patient has been admitted as observation status. DS: Summary Hospital Course Hospital Course: 68 yr old male s/p recent tURBT, TURP and R stent placement on anticoagulation presenting with gross hematuria and clot retention urology was consulted: hematuria currently resolved on CBI and only had few small clots with hand irrigation. Will have nursing work on weaning CBI to off if urine remains clear/light pink. - continue abx for presumed UTI - pt is anxious to try to go home later today since his has mental health issues. If urine remains clear off of CBI, we discussed discharge home tonight with catheter in place and with nursing showing him how to irrigate the catheter. Would recommend empiric abx for presumed UTI and holding eliquis x 48 hrs. Status at Discharge Functional status at discharge: independent ambulation Overall status at discharge: patient is progressing back to baseline Time Spent with Patient Time attestation: Total time spent providing and/or coordinating discharge services: Time spent: Greater than 30 minutes Exam Narrative: Weight 70.4 kg BMI 22.9 Const: General: comfortable Other: Thin body habitus, no acute distress, appears stated age HENMT: Other: Fair dentition, mucous membranes are tacky, no oral pharyngeal erythema Eyes: Other: No conjunctival pallor, no scleral icterus, pupils are pinpoint but equal Neck: Other: No JVD, no lymphadenopathy Resp: Effort & Inspection: normal respiratory effort Auscultation: clear to auscultation bilaterally Other: Clear to auscultation bilaterally, no increased work of breathing Cardio: Rate: regular rate Rhythm: regular rhythm Other: Regular rate, regular rhythm, 2+ bilateral radial and pedal pulses, no murmurs GI: Other: Soft, nontender, nondist
[2024-05-20 14:00] VITALS: BP 114/63; PULSE 82; RESP 16; TEMP 36.6; O2SAT 98
[2024-05-20] MEDS: ACETAMINOPHEN 325 MG TABLET 650 MG PO (20:55)
[2024-05-20 21:21] VITALS: BP 114/66; PULSE 80; RESP 18; TEMP 36.6; O2SAT 97
[2024-05-21 05:37] VITALS: BP 113/68; PULSE 72; RESP 18; TEMP 36.6; O2SAT 99
[2024-05-21] MEDS: DOCUSATE SODIUM 100 MG CAPSULE PO (08:21)
[2024-05-21] MEDS: FINASTERIDE 5 MG TABLET PO (08:21)
[2024-05-21] MEDS: TAMSULOSIN HCL 0.4 MG CAPSULE PO (08:22)
[2024-05-21] MEDS: ACETAMINOPHEN 500 MG TABLET 1000 MG PO (08:22)
[2024-05-21] MEDS: CHOLECALCIFEROL 1,000 UNITS TABLET 1000 UNITS PO (08:22)
[2024-05-21] MEDS: ASCORBIC ACID 500 MG TABLET PO (08:22)
[2024-05-21] MEDS: CYANOCOBALAMIN 1,000 MCG TABLET 1000 MCG PO (08:22)
--- NOTE | 2024-05-21 10:28 | WPDUROPN2 ---
Progress Note: A&P Assessment and Plan (1) Gross hematuria: Code(s): R31.0 - Gross hematuria Status: Acute Assessment and Plan: Urine is clear at this point time with minimal CBI. Hold CBI. If remains clear will discharge home with Polo catheter and have it removed next Tuesday. His urine is fairly clear he can resume his Eliquis later in the week. If his hematuria recurs will need ultrasound of his bladder to rule out any large clots bladder which require endoscopic retrieval Subjective Subjective Date/Time Seen: 05/21/24 10:28 Principal diagnosis: Gross hematuria Interval history: Currently doing well with minimal CBI. Will hold CBI see he does. If his urine stays clear we will discharge home with Polo catheter. If hematuria recurs will need a ultrasound of his bladder to rule out any large clots. Review of Systems Review of Systems: All systems reviewed & are unremarkable except as noted in HPI and below Exam Const: General: cooperative and comfortable Resp: Effort & Inspection: normal respiratory effort Cardio: Rate: regular rate Urinary Catheter: Urinary Catheter: patent and draining and urine clear Objective Data Vital Signs Vital Signs: Vital Signs - 24 hr 05/20/24 14:00 05/20/24 21:00 05/20/24 21:21 Temperature 36.6 C 36.6 C Pulse Rate 82 80 Respiratory Rate 16 18 Blood Pressure 114/63 114/66 Pulse Oximetry 98 97 Oxygen Delivery Room Air 05/21/24 05:37 05/21/24 08:00 Temperature 36.6 C Pulse Rate 72 Respiratory Rate 18 Blood Pressure 113/68 Pulse Oximetry 99 Oxygen Delivery Room Air Intake/Output Intake/Output: Intake & Output 05/18/24 05/19/24 05/20/24 05/21/24 23:59 23:59 23:59 23:59 Intake Total 100 1526 1000 Output Total 4819 9486 Balance 815 -[id number] -[id number] Meds/Results Medications: Active Medications Generic Name Dose Route Start Last Admin Trade Name Freq PRN Reason Stop Dose Admin Acetaminophen 1,000 mg 05/20/24 09:00 05/21/24 08:22 Acetaminophen 500 Mg Tablet PO 1,000 mg DAILY KANWAL Administration Acetaminophen 650 mg 05/20/24 19:51 05/20/24 20:55 Acetaminophen 325 Mg Tablet PO 650 mg Q4H PRN Administration Mild Pain (1-3) or Fever Ascorbic Acid 500 mg 05/20/24 09:00 05/21/24 08:22 Ascorbic Acid 500 Mg Tablet PO 06/19/24 08:59 500 mg DAILY KANWAL Administration Cyanocobalamin 1,000 mcg 05/20/24 09:00 05/21/24 08:22 Cyanocobalamin 1,000 Mcg Tablet PO 1,000 mcg DAILY KANWAL Administration Docusate Sodium 100 mg 05/20/24 09:00 05/21/24 08:21 Docusate Sodium 100 Mg Capsule PO 100 mg Q12HR KANWAL Administration Finasteride 5 mg 05/20/24 09:00 05/21/24 08:21 Finasteride 5 Mg Tablet PO 5 mg DAILY KANWAL Administration Ceftriaxone Sodium 1 gm in 50 mls @ 100 mls/hr 05/20/24 21:00 05/20/24 20:55 Rocephin 1 Gm/Ns 50 Ml IVPB 100 mls/hr Q24H KANWAL Administration Tamsulosin HCl 0.4 mg 05/20/24 09:00 05/21/24 08:22 Tamsulosin Hcl 0.4 Mg Capsule PO 0.4 mg DAILY KANWAL Administration Vitamin D 1,000 units 05/20/24 09:00 05/21/24 08:22 Cholecalciferol 1,000 Units Tablet PO 1,000 units DAILY KANWAL Administration
--- NOTE | 2024-05-21 11:50 | PM.DS ---
DS: Admitting Diagnosis Discharge Date 05/21 Admitting Diagnosis hematuria DS: Discharge Diagnosis Discharge Diagnosis (1) Gross hematuria: Code(s): R31.0 - Gross hematuria Status: Acute (2) Acute urinary obstruction: Code(s): N13.9 - Obstructive and reflux uropathy, unspecified Status: Acute (3) Abnormal urinalysis: Code(s): R82.90 - Unspecified abnormal findings in urine Status: Acute (4) Current use of anticoagulant therapy: Code(s): Z79.01 - retirement (current) use of anticoagulants Status: Acute (5) Urothelial cancer: Code(s): C68.9 - Malignant neoplasm of urinary organ, unspecified Status: Acute Plan Patient has gross hematuria resulting in urinary outlet obstruction in the setting of recent urologic procedure, chronic anticoagulant use and abnormal UA with presence of nitrates and 3+ leukocyte esterase. UA was obtained prior to initiation of CBI. Patient's hematuria could be due to anticoagulant use with recent surgery here or there may be some component of underlying urinary tract infection. Urine cultures have been obtained and are pending. The patient received empiric antibiotic therapy of Rocephin in the ER x1. Will continue Rocephin and await urine culture results. Patient had [address] catheter placed in the ER and is currently undergoing CBI and has continued gross hematuria but catheter is draining. Urine still appears to be consistent with dark red Jerry-Aid. Will hold the patient's home Eliquis. Urology has been consulted. Will await further recommendations. #history of paroxysmal AFib but has had prior left atrial appendage resection. He does have bioprosthetic aortic and mitral valve replacements but to my knowledge this should require long-term anticoagulation. At this time we can safely hold Eliquis and monitor. -trend CBC and electrolyte panel. Will resume home finasteride and Flomax. The patient is extremely concerned about staying in the hospital as he reports his is currently struggling with mental illness. He would like discharged to soon as possible. Patient has been admitted as observation status. DS: Summary Hospital Course Hospital Course: 68 yr old male s/p recent tURBT, TURP and R stent placement on anticoagulation presenting with gross hematuria and clot retention urology was consulted: hematuria currently resolved on CBI and only had few small clots with hand irrigation. Will have nursing work on weaning CBI to off if urine remains clear/light pink. - continue abx for presumed UTI - pt is anxious to try to go home later today since his has mental health issues. If urine remains clear off of CBI, we discussed discharge home tonight with catheter in place and with nursing showing him how to irrigate the catheter. Would recommend empiric abx for presumed UTI and holding eliquis x 48 hrs. - was going to be discharged 05/20- however, still hematuria with clots- so was kept overnight. Was seen per urology this am: urine is clear at this point time with minimal CBI. Hold CBI. If remains clear will discharge home with Polo catheter and have it removed next Tuesday. His urine is fairly clear he can resume his Eliquis later in the week. If his hematuria recurs will need ultrasound of his bladder to rule out any large clots bladder which require endoscopic retrieval Status at Discharge Functional status at discharge: independent ambulation Overall status at discharge: patient is progressing back to baseline Time Spent with Patient Time attestation: Total time spent providing and/or coordinating discharge services: Time spent: Greater than 30 minutes Exam Const: General: comfortable Resp: Effort & Inspection: normal respiratory effort Auscultation: clear to auscultation bilaterally Cardio: Rate: regular rate Rhythm: regular rhythm Discharge Plan Discharge Consulting providers: Ruth Beckman
== END 2024-05-21 13:40 | disposition home or self-care (01) | DRG 920 ==
LOC: ANHED 20:21 → ANH3MEDSUR 21:11
PROVIDERS: Admitting Provider Internal Medicine; Emergency Provider Emergency Medicine; PCP Urology; Visit Provider Nurse Practitioner
DX: N99.820 Postprocedural hemorrhage of a genitourinary system organ or structure following a genitourinary system procedure (principal); I50.32 Chronic diastolic (congestive) heart failure; R31.0 Gross hematuria; N13.9 Obstructive and reflux uropathy, unspecified; R82.90 Unspecified abnormal findings in urine; I48.0 Paroxysmal atrial fibrillation; M19.90 Unspecified osteoarthritis, unspecified site; N40.0 Benign prostatic hyperplasia without lower urinary tract symptoms; K21.9 Gastro-esophageal reflux disease without esophagitis; Z79.01 Long term (current) use of anticoagulants; Z85.01 Personal history of malignant neoplasm of esophagus; Z95.2 Presence of prosthetic heart valve; Z87.891 Personal history of nicotine dependence; Z85.51 Personal history of malignant neoplasm of bladder; Z85.828 Personal history of other malignant neoplasm of skin; Z90.49 Acquired absence of other specified parts of digestive tract
CPT/HCPCS: 36415; 80048; 81001; 85025; 87086; 96365; 96375; 99285; A9270; J0696; J2270

== ENCOUNTER 2024-06-05 07:30 | Outpatient (CLI) | payer MEDICARE, SELFPAY ==
--- NOTE | ~2024-06-05 | CT_ITS ---
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 TECHNIQUE: Computed tomography (CT) of the abdomen and pelvis was performed without and with intraven ous contrast using a total of 130 mL Omnipaque-350 intravenous contrast with a double-bolus technique for simultaneous opacification of the renal parenchyma and renal collecting system. Automated exposu re control and iterative reconstruction technique were employed. The dose-length product was 1064.57 mGy-cm. COMPARISON: None FINDINGS: The visualized portions of the lung bases demonstrate mild atelectasis. No pleural effusion. There ar e changes of esophagectomy and gastric pull-through procedure. The heart size is normal. There are ch anges of aortic valve replacement. No pericardial effusion. The liver, spleen, pancreas, and adrenal glands are normal. There is a 4 mm cyst in right kidney. There is cortical thinning of the kidneys. T here is mild right hydronephrosis. There is a right internal ureteral stent. The proximal aspect of t he stent is in the prosthetic urethra. There are two 1-2 mm stones in left kidney. Left ureter is wel l opacified and is normal. The bladder is not well distended. There is diverticulosis of the colon wi thout evidence of diverticulitis. The appendix is normal. There are no dilated loops of bowel. There are no pathologically enlarged lymph nodes. There is no free intraperitoneal fluid. There is a right inguinal hernia containing fat. There are changes of ventral hernia repair. There is severe lower lum bar spondylosis. IMPRESSION: 1. Mild right hydronephrosis. Right internal ureteral stent with proximal loop in abnormal position i n the prosthetic urethra. 2. Two 1-2 mm nonobstructing left kidney stones. Reviewed, dictated and finalized at location B. IMPRESSION: 1. Mild right hydronephrosis. Right internal ureteral stent with proximal loop in abnormal position in the prosthetic urethra. 2. Two 1-2 mm nonobstructing left kidney stones.
== END 2024-06-05 07:31 | disposition home or self-care (01) ==
PROVIDERS: PCP Urology; Visit Provider Urology
DX: C67.0 Malignant neoplasm of trigone of bladder (principal); N20.0 Calculus of kidney
CPT/HCPCS: 74178; Q9967